=== PATIENT | female | born 1955 | race Caucasian/White ===

== ENCOUNTER 2016-07-17 10:26 | Emergency (ER) | payer BC ==
[~2016-07-17] VITALS: Ht 160 cm; Wt 61.2 kg
[~2016-07-17 10:26] MED LIST: AMLO5TAB2 PO; ESTR1TAB4 PO; FLUT1DIS3 IH; HYDR-971 PO; IBUP200T43 PO; LISI40TA PO; METO100T5 PO; MONT10TA9 PO; MULT-246 PO
[2016-07-17 10:46] VITALS: BP 145/86
--- NOTE | 2016-07-17 12:03 | RAD ---
Indication fall, pain. AP lateral and oblique views of the left knee were obtained. An acute bony finding is not seen. The patella is somewhat "high riding". This is probably a normal variant
[2016-07-17] MEDS ORDERED: LIDOCAINE 1% / SOD BICARB 8.4% 20 ML VIAL. IJ ONE (12:15)
[2016-07-17] MEDS ORDERED: HYDROCODONE/APAP 5/325MG TABLET. PO ONE (12:15)
[2016-07-17] MEDS ORDERED: DIPHTH,PERTUSS(ACELL),TET TOX 0.5 ML DISP.SYRIN. VAX IM ONE (12:15)
--- NOTE | 2016-07-17 12:19 | PHYS DOC ---
Past Medical History Past Medical History: Asthma, Hypertension Past Surgical History: , Oophorectomy Alcohol Use: Rarely Drug Use: None Adult General Chief Complaint Chief Complaint: KNEE INJURY HPI HPI Patient is a 61 year old female presents to the emergency department with a history of falling on the asphalt today her driveway. Patient states that she landed on her left knee. She has a laceration noted to the knee that is approximately 1 cm in length. She states that she was unable to ambulate after the fall. She denies any numbness or tingling down to the lower extremity. Patient does have bruising and swelling noted around the knee. She states that she has pain just below the kneecap. Patient is unsure when her last tetanus immunization occurred. Review of Systems Review of Systems Constitutional: Denies fever or chills [] Eyes: Denies change in visual acuity, redness, or eye pain [] HENT: Denies nasal congestion or sore throat [] Respiratory: Denies cough or shortness of breath [] Cardiovascular: No additional information not addressed in HPI [] GI: Denies abdominal pain, nausea, vomiting, bloody stools or diarrhea [] : Denies dysuria or hematuria [] Musculoskeletal: Denies back pain. Left knee pain Integument: Denies rash or skin lesions. Laceration 1 cm to the left knee Neurologic: Denies headache, focal weakness or sensory changes [] Current Medications Current Medications Current Medications Medications (Trade) Dose Ordered Sig/Yasmeen Start Time Stop Time Status Last Admin Dose Admin Acetaminophen/ Hydrocodone Bitart (Lortab 5/325) 1 tab 1X ONCE 07/17/16 12:15 07/17/16 12:16 DC 07/17/16 11:51 1 TAB Diphtheria/ Tetanus/Acell Pertussis (Boostrix) 0.5 ml ONCE ONCE 07/17/16 12:15 07/17/16 12:16 DC 07/17/16 11:52 0.5 ML Lidocaine/Sodium Bicarbonate (Buffered Lidocaine 1%) 20 ml 1X ONCE 07/17/16 12:15 07/17/16 12:16 DC 07/17/16 11:50 20 ML Allergies Allergies Allergies Coded Allergies Type Severity Reaction Last Updated Verified No Known Drug Allergies 06/03/13 No Physical Exam Physical Exam Constitutional: Well developed, well nourished, no acute distress, non-toxic appearance. [] HENT: Normocephalic, atraumatic, bilateral external ears normal, oropharynx moist, no oral exudates, nose normal. [] Eyes: PERRLA, EOMI, conjunctiva normal, no discharge. [] Neck: Normal range of motion, no tenderness, supple, no stridor. [] Cardiovascular:Heart rate regular rhythm Lungs & Thorax: no respiratory distress noted Skin: Warm, dry, no erythema, no rash. Surgeon noted to the left knee approximately 1-1.5 cm in length. Bleeding is currently controlled. Patient does have bruising noted around the lower part of the knee area. No tenderness noted lateral medial area of the knee. No posterior knee pain. Back: No tenderness Extremities: Left knee tenderness, no cyanosis, no clubbing, ROM intact, no edema. Peripheral pulses 2+ cap refill brisk less than 2 seconds. Neurologic: Alert and oriented X 3, normal motor function, normal sensory function, no focal deficits noted. [] Psychologic: Affect normal, judgement normal, mood normal. [] Current Patient Data Vital Signs Vital Signs Date Time Temp Pulse Resp B/P Pulse Ox O2 Delivery O2 Flow Rate FiO2 07/17/16 11:51 16 Room Air 07/17/16 10:46 98 66 145/86 98 98.0 EKG EKG [] Radiology/Procedures Radiology/Procedures [][facility] [address] [place] [address] IMAGING REPORT Signed PATIENT: KRYSTIAN KIM ACCOUNT: [id number] : 1955 LOCATION: ER AGE: 61 SEX: F EXAM STATUS: REG ER ORD. PHYSICIAN: BHARATH DE LOS SANTOS APRN REASON: FELL PAIN TO KNEE, laceration to knee PROCEDURE: KNEE LEFT 3V Indication fall, pain. AP lateral and oblique views of the left knee were obtained. An acute bony finding is not seen. The patella is somewhat "high riding". This is probably a normal variant DICTATED and SIGNED BY: LUKAS ANDERSON MD DATE: 07/17/16 5743 CC: BHARATH DE LOS SANTOS APRN; CAL MYRICK MD; NON,STAFF ~ Course & Med Decision Making Course & Med Decision Making Pertinent Labs and Imaging studies reviewed. (See chart for details) Laceration repair was completed by Dr. Torres. X-rays were negative for any fractures or bony abnormalities. Patient will be discharged home with recommendations for ice packs elevation as much as possible. Tylenol or ibuprofen for pain and discomfort. Also recommended patient to keep the area clean and dry. Clean the site twice a day with soap and water and apply antibiotic ointment to the area. Signs and symptoms of infection: Redness, warmth, tenderness or any yellow/greenish drainage would require her to follow up immediately. Otherwise sutures out in the next 7-10 days. Patient was provided with signs and symptoms to return back to emergency department. [] Dragon Disclaimer Dragon Disclaimer This electronic medical record was generated, in whole or in part, using a voice recognition dictation system. Departure Departure Impression: Primary Impression: Laceration Additional Impression: Knee pain Disposition: 01 HOME, SELF-CARE Condition: STABLE Referrals: CAL MYRICK MD (PCP) Patient Instructions: Knee Pain, [id number], Laceration Care, Adult, Easy-to- Read Additional Instructions: Activity as tolerated. Tylenol or ibuprofen for pain and discomfort. Ice packs elevation as much as possible. Keep the area clean and dry Site with soap and water and apply antibiotic ointment to the area twice a day. Watch for signs and symptoms of infection: Redness, warmth, tenderness or any yellow/greenish drainage. If this should occur you need follow-up to primary care physician immediately. Sutures out in the next 7-10 days. Return back to emergency department sign symptoms of become worse. Laceration Repair Lac Repair Indication: Left knee laceration Procedure: The patient was placed in the appropriate position and anesthesia around the left knee. 1% buffered lidocaine was used to anesthetize the area. He was then cleansed with saline and Betadine. The laceration was repaired using a simple interrupted method. With nonabsorbable sutures. The area was then dressed with nonadherent dressing. Total repaired wound length: 2cm. Other Items: The patient tolerated the procedure well. Complications: none. Problem Qualifiers BHARATH DE LOS SANTOS APRN Jul 17, 2016 12:19 SATYA TORRES MD Jul 17, 2016 12:48
== END 2016-07-17 13:20 | disposition home or self-care (01) ==
LOC: ER 10:26
DX: S81.012A Laceration without foreign body, left knee, initial encounter (principal); J45.909 Unspecified asthma, uncomplicated; I10 Essential (primary) hypertension; W18.31XA Fall on same level due to stepping on an object, initial encounter; Y93.89 Activity, other specified; Y99.8 Other external cause status; Y92.89 Other specified places as the place of occurrence of the external cause
CPT/HCPCS: 12001; 73562; 90471; 90715; 99284-25

== ENCOUNTER → 2016-10-15 | Outpatient (CLI) | payer BC ==
[~2016-10-15] MED LIST changes: +GADOBUTROL 7.5 MMOL/7.5 ML VIAL IV ONE
--- NOTE | 2016-10-15 11:36 | KCIC ---
MR BRAIN WITH CONTRAST HISTORY: Cluster headache TECHNIQUE: Axial diffusion-weighted imaging was obtained. Additional axial FLAIR, and axial T2 weighted images were obtained. Sagittal and axial T1-weighted imaging was obtained prior to the administration of intravenous contrast material. Additional sagittal, axial, and coronal T1-weighted imaging was obtained after the administration of gadolinium based intravenous contrast material. FINDINGS: No abnormal signal within the brain parenchyma. No abnormal enhancement identified. No restricted diffusion to indicate an acute infarct. No evidence of acute intracranial hemorrhage. No extra-axial fluid collections are identified. There is no mass effect or midline shift. Ventricular size is appropriate. Basal cisterns are patent. Visualized flow voids are normal in course, caliber, and signal. Globes and orbits are unremarkable. Paranasal sinuses and mastoid air cells are clear. IMPRESSION: Unremarkable MR examination of the brain with contrast. No restricted diffusion to indicate acute infarct. No abnormal enhancement. Electronically signed by: Marcus Hunter MD (10/15/2016 11:33 AM)
--- NOTE | 2016-10-15 11:40 | KCIC ---
MR ANGIOGRAM HEAD HISTORY: Cluster headache COMPARISON: MRI brain from the same date Technique: Axial and sagittal T1-weighted images of the brain were obtained. 3-D [id number] MR angiogram of the head was obtained. Additional maximum intensity pixel projections were also obtained and presented in rotating format. Additional 3-D analysis was also performed. FINDINGS: No hemodynamically significant stenosis is identified in any of the visualized intracranial vessels. The bilateral internal carotid arteries, carotid siphons, middle cerebral arteries, and anterior cerebral arteries are within normal limits. The region of the anterior communicating artery is normal. The vertebrobasilar junction is within normal limits. The basilar artery, and bilateral posterior cerebral arteries are widely patent. No aneurysm or arteriovenous malformation is identified. IMPRESSION: No evidence of hemodynamically significant stenosis, aneurysm, or arteriovenous malformation. Electronically signed by: Marcus Hunter MD (10/15/2016 11:37 AM)
== END | disposition home or self-care (01) ==
LOC: KCIC MRI 09:58
PROVIDERS: ATTEND Family Medicine
DX: G44.009 Cluster headache syndrome, unspecified, not intractable (principal); J45.909 Unspecified asthma, uncomplicated; Z86.79 Personal history of other diseases of the circulatory system; I10 Essential (primary) hypertension
CPT/HCPCS: 70544; 70553; A9585

== ENCOUNTER → 2018-09-01 | Day surgery (SDC) | payer BC ==
[~2018-09-01] MED LIST changes: +AMLO5TAB10 PO; -AMLO5TAB2 PO; -GADOBUTROL 7.5 MMOL/7.5 ML VIAL IV ONE; +HYDR-3164 PO; -HYDR-971 PO; -IBUP200T43 PO; +IBUP200T44 PO; +IV RINGERS,LACTATED 1000ML 1,000 ML IV SCH; +LISI-130 PO; -LISI40TA PO; +PROPOFOL 20 ML IV ONE
[2018-09-01 08:39] VITALS: BP 123/86
--- NOTE | 2018-09-02 01:38 | HP ---
ADMIT DATE: 09/01/2018 REFERRING PHYSICIAN: Rachel Price MD REASON: Colorectal screening. HISTORY OF PRESENT ILLNESS: A 63-year-old female with past medical history significant for hypertension, hyperlipidemia as well as asthma, seen for screening colon exam. Last exam was done 10 years previously, which was unrevealing for polyps or cancers. No family history of colon cancer as well. Bowel habits have been regular without diarrhea or constipation, melena and/or hematochezia. Weight and appetite have been stable. She is otherwise without additional complaints. PAST MEDICAL HISTORY: Hypertension, hyperlipidemia, SLE, asthma. ALLERGIES: None. MEDICATIONS: Include [place], amlodipine, Advair, ibuprofen, lisinopril, metoprolol, multivitamin. PAST SURGICAL HISTORY: Status post appendectomy, , tonsillectomy and tubal ligation. REVIEW OF SYSTEMS: Per records. PHYSICAL EXAMINATION: GENERAL: Reveals a well-nourished, well-developed female who is alert, cooperative, in no acute distress. VITAL SIGNS: Temperature is 97, pulse is 90, respiratory rate 18. HEENT: Reveals normocephalic, atraumatic head. Pupils and extraocular muscles are not tested. Sclerae are icteric. NECK: Supple. LUNGS: Clear. CARDIOVASCULAR: Reveals an S1, S2 without S3, S4 or appreciable murmur. ABDOMEN: Soft abdomen, normal bowel sounds, without appreciable hepatosplenomegaly. incision is noted. EXTREMITIES: Reveals no cyanosis, clubbing or edema. IMPRESSION: Colorectal screening is warranted at this time. Risks and benefits have been discussed with the patient including risk of hemorrhage and perforation. She is willing to proceed. JERALD HARDIN MD DR: AMBER/wai JOB#: [id number] / [id number]
== END | disposition home or self-care (01) ==
LOC: ENDOS 06:41
PROVIDERS: ATTEND Internal Medicine Gastroenterology
DX: Z12.11 Encounter for screening for malignant neoplasm of colon (principal); K64.0 First degree hemorrhoids; I10 Essential (primary) hypertension; E78.5 Hyperlipidemia, unspecified; J45.909 Unspecified asthma, uncomplicated; M32.9 Systemic lupus erythematosus, unspecified; Z79.899 Other long term (current) drug therapy; Z90.49 Acquired absence of other specified parts of digestive tract; Z98.890 Other specified postprocedural states; Z98.51 Tubal ligation status; Z87.19 Personal history of other diseases of the digestive system
CPT/HCPCS: 45378; J2704

== ENCOUNTER → 2019-12-04 | Outpatient (CLI) | payer BC, MEDICARE ==
[2018-09-01 08:39] VITALS: BP 123/86
[~2019-12-04] MED LIST changes: +IOHEXOL 240 MG/ML 50ML VIAL. PO ONE; +IOHEXOL 300 MG/ML 100ML VIAL. IV ONE; -IV RINGERS,LACTATED 1000ML 1,000 ML IV SCH; +MONT10TA49 PO; -MONT10TA9 PO; -PROPOFOL 20 ML IV ONE
--- NOTE | 2019-12-04 13:38 | KCIC ---
CT ABD PELV W/ORAL IV CONTRAST Indication: Lower abdominal pain for 5 to 6 weeks Technique: Postcontrast CT imaging was performed of the abdomen pelvis, multiplanar reconstruction images submitted. Oral contrast was also given. One or more of the following individualized dose reduction techniques were utilized for this examination: 1. Automated exposure control 2. Adjustment of the mA and/or kV according to patient size 3. Use of iterative reconstruction technique. Comparison: None other than 06/06/13 exam Findings: There is a small fairly dense 0.2 to 0.3 cm left lower lobe nodule image 10 series 2, may be partially mineralized. There is no pleural fluid. Both kidneys enhance, no hydronephrosis. Gallbladder is present without obvious intraluminal abnormality by CT. No new focal abnormality is identified of the liver, pancreas, or spleen. There is stable 0.5 cm hypodense lesion of the spleen. Bowel is not significantly dilated. There is no free fluid or free air. Reportedly there has been appendectomy. There is long segment mild wall prominence of descending and sigmoid colon although no associated adjacent inflammatory change. There is minimal colonic diverticulosis. There is minimal plaque of the abdominal aorta. There is advanced L5-S1 degenerative disc disease, also disc osteophyte complex at this level. IMPRESSION: 1. There is appearance of mild descending and sigmoid colonic wall thickening, mild colitis not excluded although no adjacent inflammatory change. There is minimal colonic diverticulosis. Electronically signed by: Preston Song MD (12/04/2019 1:35 PM) [id number]
== END | disposition home or self-care (01) ==
LOC: KCIC CT 09:19
PROVIDERS: ATTEND Family Medicine
DX: K57.30 Diverticulosis of large intestine without perforation or abscess without bleeding (principal); D73.89 Other diseases of spleen; I70.0 Atherosclerosis of aorta; R91.1 Solitary pulmonary nodule; M51.37 Other intervertebral disc degeneration, lumbosacral region; M25.78 Osteophyte, vertebrae
CPT/HCPCS: 74177; 82565; Q9966; Q9967

== ENCOUNTER → 2020-01-09 | Outpatient (CLI) | payer MEDICARE ==
[2018-09-01 08:39] VITALS: BP 123/86
[~2020-01-09] MED LIST changes: +BUPIVACAINE-EPI 0.5%-1:200000 MPF 30 ML VIAL. INJ ONE; -IOHEXOL 240 MG/ML 50ML VIAL. PO ONE; -IOHEXOL 300 MG/ML 100ML VIAL. IV ONE
--- NOTE | 2020-01-09 14:30 | RAD ---
Examination: 1. Right breast stereotactic core needle biopsy. 2. Right postprocedure diagnostic mammogram. INDICATION: 64-year-old woman with architectural distortion in the medial right breast showing no definite sonographic correlate, recommended for stereotactic core needle biopsy. She has has previous bilateral benign stereotactic breast biopsies with inadequate analgesia of the right breast. She is on beta jose therapy. COMPARISON: Right diagnostic mammogram of 12/24/2019; single images in each view from the tomographic series were provided for review, including single slice annotated tomographic images. TECHNIQUE AND FINDINGS: Informed consent was obtained and an appropriate procedural pause observed. The initial lube technician image for lesion targeting revealed the presence of unanticipated coarse, dystrophic type calcifications projecting over the questioned area of distortion which, on the 2-D images acquired for stereotactic imaging guidance, was not as apparent as they were on the images provided for reference from the previous diagnostic mammogram. This prompted a temporary pause in proceeding with biopsy to acquire additional images of both breasts with 2-D and 3-D technique to confirm appropriate breast and lesion targeting. These additional images confirmed that architectural distortion was indeed present in the medial RIGHT breast, and was associated with a dense asymmetry in the medial posterior right breast. The unexpected calcifications encountered during the initial stereotactic lube technician image represented superimposed calcifications more superiorly in the right breast but there were also a pair of round calcifications that were close to the area of architectural distortion and might be sampled during stereotactic biopsy of the distortion. In response to an alert by the electronic medical record regarding the patient's beta jose therapy and a potential dose-dependent interaction with lidocaine, after consultation with the hospital pharmacist, I elected to utilize predominantly 0.5 percent bupivacaine for local anesthesia and used less than 5 mL of lidocaine for the procedure. I did observe the breast tissue in this area had a gritty or scirrhous texture while applying local anesthesia with the needle. Following satisfactory administration of local anesthesia, multiple vacuum assisted core biopsy samples of the area of architectural distortion in the medial right breast were obtained using a 9 gauge standard Eviva needle. A specimen radiograph showed sampling of the 2 calcifications near the asymmetry associated with the architectural distortion as well as dense tissue within the sample that likely represents the asymmetry associated with the distortion. A dl-shaped biopsy marker was deployed at the biopsy site and hemostasis ensured with direct breast compression for several minutes. Sample was sent to pathology and a 2 view diagnostic mammogram was obtained of the right breast showing satisfactory deployment of a dl-shaped biopsy marker at the biopsy site in the area of architectural distortion, now slightly obscured by post biopsy changes. Incidental note is made of a slightly larger dl-shaped biopsy marker more anteriorly in the right breast, which had been placed during an earlier biopsy and had been described on the diagnostic breast ultrasound performed prior to this procedure. Patient tolerated the procedure without incident. There were no apparent complications. The puncture site was dressed and postprocedure instructions were reviewed. Patient was subsequently discharged in stable condition to follow up with her referring physician. IMPRESSION: Successful stereotactic core needle biopsy of architectural distortion in the medial posterior right breast. Pathology results are pending. An addendum will be issued once pathology results become available. Electronically signed by: Severiano Perea MD (01/09/2020 2:27 PM) [id number]
--- NOTE | 2020-01-11 17:07 | PATHOLOGY ---
[facility] Accession Number: [id number] . 01 Material submitted: . breast - RIGHT BREAST TISSUE. Modifiers: right . 01 Clinical history: . ABNORMAL RIGHT MAMMOGRAM, RIGHT BREAST NODULE . 02 Diagnosis: Breast tissue, right breast nodule, stereotactic needle biopsies: - INVASIVE LOBULAR CARCINOMA. SEE COMMENT. - LOBULAR CARCINOMA IN SITU, FOCAL. - Fibrocystic changes. - Sclerosing adenosis, focal. - Scattered microcalcifications and occasional coarse calcifications identified. . (JPM:cande/jd; 01/10/2020) [facility] 01/11/2020 1413 Local . 02 Comment: Sections of the right breast stereotactic needle biopsy reveal multiple small foci of invasive mammary carcinoma. The tumor cells are small and appear to infiltrate the fibrous stroma and adipose tissue as individual tumor cells and small cords. There is no significant nuclear atypia or mitotic activity. The largest focus measures up to 3-4 mm in greatest dimension. The needle biopsies also show focal lobular carcinoma in situ, fibrocystic changes, and sclerosing adenosis. There are several small scattered microcalcifications and occasional coarse calcifications noted. Multiple immunoperoxidase stains are obtained and yield the following results: . AE1/AE3 (A5): Infiltrating tumor cells positive. E-cadherin (A5): Infiltrating tumor cells negative or weakly positive. AE1/AE3 (A1): Infiltrating tumor cells positive. AE1/AE3 (A2): Infiltrating tumor cells positive. AE1/AE3 (A3): Infiltrating tumor cells positive. AE1/AE3 (A4): Infiltrating tumor cells positive. AE1/AE3 (A6): Infiltrating tumor cells positive. . The morphologic and immunophenotypic findings are supportive of the diagnosis of invasive lobular carcinoma. An attempt will be made to perform breast prognostic studies on A5, the results of which will be reported separately. The case is also examined by Dr. Barfield, who concurs with the diagnosis. . (JPM:jd; 01/11/2020) . 02 Electronically signed: . Jay Bolaños MD, Pathologist NPI- [id number] . 01 Gross description: . The specimen is received in formalin, labeled "Alexa Saenz, right breast". Received are multiple needle cores of fibrofatty tissue measuring 4.8 x 4.1 x 0.6 cm in aggregate dimensions. The specimen is submitted entirely in cassettes A1 through A7. The cold ischemic time is 7 minutes. The total formalin fixation time is 11 hours and 35 minutes. ([facility]; 01/09/2020) QAC/QA 01/09/2020 1602 Local . 02 Pathologist provided ICD-10: N62, D05.01, N60.11, N60.21, C50.911, D05.01 . 02 CPT . 978662, [id number], [id number] Specimen Comment: A courtesy copy of this report has been sent to [phone], [phone] Specimen Comment: [id number] Specimen Comment: Report sent to / DR MYRICK Performed at: 01 [facility] [address], [place], [place] [id number] MD Stone Bae MD Phone: [phone] Performed at: [address] [facility] [address] [place], [place] [id number] MD Jay Bolaños MD Phone: [phone]
== END | disposition home or self-care (01) ==
LOC: MAMMO 07:58
PROVIDERS: ATTEND Surgery
DX: C50.911 Malignant neoplasm of unspecified site of right female breast (principal); Z79.899 Other long term (current) drug therapy
CPT/HCPCS: 19081; 77022; 77066; C1713; G0279; 19085; 77062